=== PATIENT | female | born 1960 | race Caucasian/White ===

== ENCOUNTER 2021-11-08 12:24 | Outpatient (CLI) | payer OTHER, SELFPAY ==
--- NOTE | 2021-11-08 12:30 | ECG_ITS ---
Measurements Intervals [place] Rate: 70 P: 58 NH: 152 QRS: 25 QRSD: 98 T: 32 QT: 377 QTc: 408 Interpretive Statements SINUS RHYTHM BASELINE ARTIFACT NORMAL ECG NO PREVIOUS ECG AVAILABLE FOR COMPARISON Electronically Signed On 11-08-2021 15:37:55 CDT by Ford Allan M.D.
[2021-11-08 12:57] LABS: Anion Gap 7 mmol/L (8-16); Blood Urea Nitrogen 15 mg/dL (7-17); Calcium 9.2 mg/dL (8.4-10.2); Carbon Dioxide 34 mmol/L (22-30); Chloride 98 mmol/L (98-107); Estimated Glomerular Filt Rate > 60; Glucose 90 mg/dL (65-110); Potassium 4.1 mmol/L (3.4-5.0); Sodium 139 mmol/L (137-145)
== END 2021-11-08 12:25 | disposition home or self-care (01) ==
LOC: ANHSURGERY 12:30
PROVIDERS: Anesthesiology; PCP Internal Medicine; Visit Provider Podiatrist Foot & Ankle Surgery
DX: E78.00 Pure hypercholesterolemia, unspecified (principal); Z79.899 Other long term (current) drug therapy; Z01.818 Encounter for other preprocedural examination
CPT/HCPCS: 36415; 80048; 93005

== ENCOUNTER 2021-11-11 01:11 | Day surgery (SDC) | payer OTHER, SELFPAY ==
[2021-11-07 15:25] VITALS: BMI 25.6
--- NOTE | 2021-11-07 15:41 | PC.NURSE ---
Report to the Outpatient Waiting Room, entrance under the green pavilion located off [facility], at time 6:30 on date 11/11/21. OR Time: 8:30. - You and your visitor will be asked a series of questions to screen for COVID 19 for your protection. - Only one visitor is allowed at this time. - The patient visitor is requested to leave or wait in car when not with patient. - A mask is required within the hospital. Patients may have clear liquids (water, carbonated beverages, clear teas, apple juice) until 3 hours prior to surgery (5:30) with a maximum of 20 ounces. - No food from midnight until time of surgery Take the following medications with a SIP of water the morning of surgery: NONE Medications to discontinue per physician: VITAMINS/SUPPLEMENTS Date to take last dose: 11/07/21 Please no make-up, nail bengali, hairspray, perfume, deodorant, or body powder the day of surgery. No jewelry (including any body piercings) or valuables the day of surgery, leave them at home. Please take a shower or bath the night before, or the morning of, surgery with an antibacterial soap. Wear comfortable, loose fitting clothing. - Jewelry must be removed prior to entering the operating room. Rings and piercings that are not removed may be cut off. - The hospital will not accept responsibility for valuables. - Please leave all valuables, including medications, at home the day of surgery. If you are going home after surgery, a licensed bus driver supervisor must drive you home. - NO public transportation without another adult. - We recommend that an adult stay with you for 24 hours following discharge. - We also recommend that you do not drive, make important decision, drink alcoholic beverages, or take any drugs that were not prescribed by your health care provider for at least 24 hours after your discharge time. Follow any additional instructions given to you from your surgeon. If you or anyone in your household have experienced Covid symptoms in the past week, please notify your surgeon or the nurse liaison at the phone number below for possible testing. Telephone instructions given to PT - JOSE J CARDOZA and asked if any additional questions and then verbalized understanding. Patient advised to call surgeon office or pre surgery nurse liaison [phone] if any additional questions.
--- NOTE | 2021-11-10 14:38 | P.PNAN_ITS ---
Anes - Initial Pre Proc Eval Procedure: Operation Date: 11/11/21 08:30 Proposed Procedures p Enmanuel Dameon Bunionectomy Left Foot, - Ryan Car JR, MD s Excision of Osteophyte Left Foot - Ryan Car JR, MD Date/Time: 11/10/21 14:38 Surgeon: Ryan Car JR, MD Pre Op Diagnosis: bunion and osteophyte left foot Patient Data Age: 61 Gender: F Height: 1.57 m Weight: 63.6 kg Allergies Allergy/AdvReac Type Severity Reaction Status Date / Time No Known Allergies Allergy Unknown Unverified 11/11/21 07:03 Home Medications Medication Instructions Recorded Confirmed Type calcium carbonate 600 mg-vitamin 1 tablet PO DAILY 11/07/21 11/11/21 History D3 5 mcg (200 unit) tablet flaxseed oil 1,000 mg capsule 1,000 mg PO DAILY 11/07/21 11/11/21 History hydrochlorothiazide 25 mg tablet 12.5 mg PO DAILY SWELLING 11/07/21 11/11/21 History multivitamin 1 tablet PO DAILY 11/07/21 11/11/21 History simvastatin 40 mg tablet 40 mg PO DAILY 11/07/21 11/11/21 History Patient hx anesthesia problems: none Family hx anesthesia problems: none Results Review: All pre-operative results and documents have been reviewed as part of the pre- operative evaluation. [facility] Past Medical History Medical History (Updated 11/10/21 @ 14:39 by Alan Kennedy MD) HTN (hypertension) Hyperlipidemia Social History Social History Smoking status: Never smoker Alcohol intake: current Drinks per week: 3 Substance use: never Substance use type: does not use Living arrangements: with family Spiritual care concerns: No Anes - Eval Final PreProcedure Day of Procedure 11/10/21 14:38 Patient weight: overweight Heart: regular rate and rhythm Lungs: clear to auscultation and normal air movement Airway: Mallampati scale class II Neurological: alert and oriented Last oral intake: >/= 8 hours ASA classification: II Emergent: no Anesthetic plan: proceed Anesthesia type and monitoring: general LMA Results Review: All pre-operative results and documents have been reviewed as part of the pre- operative evaluation. Informed Consent: The patient's anesthetic plan and its attendant risks and benefits were discussed with the patient/family/POA. Questions were solicited and answers provided to the satisfaction of the patient/family/POA.
[2021-11-11] VITALS (8 sets, daily range): BP systolic 107–133; BP diastolic 58–70; PULSE 70–85; RESP 10–17; TEMP 36.2–36.7; O2SAT 96–100
--- NOTE | ~2021-11-11 | XR_ITS ---
XR surgery orthopedic DATE: 11/11/2021 10:04 INDICATION: Bunionectomy, osteophyte excision TECHNIQUE: 2 spot C-arm images of the forefoot 6 seconds fluoroscopy time 0.6253 cGy*cm2 total DAP COMPARISON: None FINDINGS: Status post bunionectomy, with 2 screws along the distal shaft of the first metatarsal bone and a U-shape] bridging an osteotomy at the metaphysis of the proximal phalanx of the first digit. IMPRESSION: Status post bunionectomy and osteophyte excision Reviewed, dictated and finalized at [facility]. Reviewed, dictated and finalized at [facility].
--- NOTE | 2021-11-11 07:05 | WPDHPUPDATE1 ---
History and Physical Update Update Date/Time: 11/11/21 07:05 History and Physical has been reviewed, including an updated exam of the patient. There are NO changes in the patient's condition. Risks, benefits, and alternatives have been discussed and questions answered. Patient agrees to proceed with procedure.
[2021-11-11] MEDS: LACTATED RINGERS 1,000 ML 30 ML IV CONT ×2 (07:13→10:30)
--- NOTE | 2021-11-11 08:55 | WPDANESPNB ---
Anes - Peripheral Nerve Block Date/Time: 11/11/21 08:55 I have discussed with the patient/family/POA the placement of a peripheral nerve block for post-operative pain management, including associated risks, benefits, complications, and side effects. Alternative methods of post-operative analgesia were detailed. Questions were solicited and answers provided to the satisfaction of the patient/family/POA. Time-Out: A pre-procedural Time-Out was completed immediately before starting the procedure and confirmed: Patient Identification, Site, Procedure, Patient Position and the Availability of Requisite Equipment. Clinical Indications: Acute post-operative pain management requested by the operative surgeon. Nerve Block Insertion Note Anes-nerve block: posterior fossa sciatic (20cc) left Patient position: supine Skin prep: chlorhexidine Needle: 22 gauge, stimulating, insulated echogenic needle. Needle length: 80 mm Technique: ultrasound (in plane) Injectate: bupivacaine 0.5% with epi 5 mcg/ml (20cc) Observations: tolerated well Complications: none Procedure start time:: 850 Procedure end time:: 855
[2021-11-11] MEDS: ceFAZolin 2 GM/D5W 50 ML 2 GM/50 ML BAG IVPB (08:59)
--- NOTE | 2021-11-11 10:46 | W.PM.PROC2 ---
Procedure Note - Detailed Date of Procedure 11/13/21 Pre-op Diagnosis 1. Bunion left foot 2. Painful osteophyte left foot Post-op Diagnosis Same Procedure Performed 1. Enmanuel Dameon Bunionectomy left foot 2. Excision of osteophyte leftfoot Surgeon Ryan Car JR, DPM Anesthesia General and Regional Indications Painful left foot
--- NOTE | 2021-11-11 10:48 | PM.OP ---
Procedure Note - Brief Procedure Note - Brief Date of procedure: 11/11/21 Pre-op diagnosis: bunion and osteophyte left foot Procedure performed: 1. Enmanuel Dameon Bunionectomy left foot 2. Excision of osteophyte left foot Surgeon: Ryan Car JR, NALLELY
--- NOTE | 2021-11-11 11:25 | W.PM.PROC2 ---
Procedure Note - Detailed Date of Procedure 11/11/21 Pre-op Diagnosis 1. Bunion deformity left foot 2. Painful osteophyte left foot Post-op Diagnosis Same Procedure Performed 1. Enmanuel Dameon Bunionectomy left foot 2. Excision of osteophyte leftfoot Surgeon Ryan Car JR, KIRKM Anesthesia General and Regional Description of Procedure Under mild sedation, the patient was brought in to the operating room, placed on the operating table in the supine position. A pneumatic ankle tourniquet was placed about the patient's left ankle. Following general anesthesia, and prevoiois popliteal fossa block, the foot was then scrubbed, prepped, and draped in the usual aseptic manner. An Esmarch bandage was then used to exsanguinate the patient's foot and the pneumatic ankle tourniquet was then inflated. An incion was made overlying the dorsal first metatarsal cuneiform joint extending to the periosteum. A capsular incision was made overlying a prominent osteophyte. Once exposed it was resected with an osteotome and mallet. The surrounding bone was made smooth with a stahl rasp. The area was flused with copious amounts of sterile saline. The capsule and subcutaneous structures were reapproximated with 4-0 Vicryl and the skin was reapproximated with 4-0 Monocryl in running suture fashion technique. An incision was made along the medial aspect of the first metatarsophalangeal joint along the contour of the bunion deformity. The incision was continued deep down through the subcutaneous tissues using sharp and blunt dissection. All bleeders were ligated and cauterized as necessary. At this point, dissection was continued to the first interspace via the original skin incision where the adductor hallucis tendon was initially identified and transected. Next the lateral capsule was incised as well as releasing the lateral fibular sesamoid both laterally, distally and proximally. This freed the lateral contracture present to the joint. Attention was then directed to the medial aspect of the first metatarsophalangeal joint of the foot where a periosteum and capsular incision was made the full length of the skin incision just proximal to the interphalangeal joint of the hallux to the central shaft of the first metatarsal. The periosteum and capsular structures were reflected superiorly and inferiorly exposing the base of the proximal phalanx as well as the distal first metatarsal. Next, the medial eminence was resected from the first metatarsal head utilizing a sagittal bone saw. Next, a V-type osteotomy was created in the distal metaphyseal region of the bone utilizing a sagittal bone saw. The apex of the osteotomy pointed distally with the arms pointing proximal plantarly and proximal dorsally. The dorsal arm was made longer to accommodate internal fixation. Upon completion of the osteotomy, the capital fragment was distracted and shifted laterally into more corrected position and impacted upon the first metatarsal shaft. Next two 3.0 mm partially threaded cannulated screws were driven from dorsal to plantar across the osteotomy site with excellent compression noted. The temporary fixation was then removed. Next, the remaining medial bone shaft was resected utilizing a sagittal bone saw. Attention was then directed to the proximal phalanx medially where a small 2 mm wedge resection of bone was taken from the proximal phalanx. After the wedge resection was performed, an 8 mm compression staple was placed from medial to lateral across the osteotomy site with excellent compression noted. After this osteotomy was performed, the hallux was noted to be in a rectus position as well as significant reduction of the first intermetatarsal angle was noted with live fluoroscopic imaging. The screws and staple were appropriately aligned and oriented utilizing fluoroscopy. The wound site was then flushed with copious amounts of sterile saline. Next, a rotary power b
== END 2021-11-11 12:06 | disposition home or self-care (01) ==
PROVIDERS: PCP Internal Medicine; Visit Provider Podiatrist Foot & Ankle Surgery
PROC: (CPT 28299; principal; 2021-11-11 08:30)
DX: M21.612 Bunion of left foot (principal); M25.775 Osteophyte, left foot; I10 Essential (primary) hypertension; E78.49 Other hyperlipidemia; G89.18 Other acute postprocedural pain
CPT/HCPCS: 28299; 64445; 28104; 36415; 80048; 93005; 99199; C1713; J0690; J1100; J2250; J2405; J2704; J3010; J7120

== ENCOUNTER 2022-02-20 00:59 | Day surgery (SDC) | payer OTHER, SELFPAY ==
[2022-02-09 14:40] VITALS: BMI 25.6
[2022-02-20 07:38] VITALS: BP 129/68; PULSE 83; RESP 18; TEMP 36.7; O2SAT 99; BMI 26.0
[2022-02-20] MEDS: LACTATED RINGERS 1,000 ML 150 ML IV CONT (07:56)
--- NOTE | 2022-02-20 08:13 | P.HP_ITS ---
History of Present Illness History of Present Illness Consent: Risks, benefits, and alternatives have been discussed and questions answered. Patient agrees to proceed with procedure. Chief complaint: neoplasm screening Narrative: Savannah Carter is a 61 year old female Presents for screening colonoscopy. Patient's current weight appetite and bowel movements are normal. She denies abdominal pain. She has had no bleeding. Family history is noncontributory. Patient presents today for screening exam. Review of Systems Review of Systems: Review of systems noncontributory. [facility] Past Medical History Medical History (Updated 02/20/22 @ 08:14 by Demetri Kerns MD) HTN (hypertension) Hyperlipidemia Social History Social History Smoking status: Never smoker Alcohol intake: current Drinks per week: 3 Alcohol use details: weekends Substance use: never Substance use type: does not use Living arrangements: with family Spiritual care concerns: No Meds Home Medications and Allergies Home Medications Medication Instructions Recorded Confirmed Type calcium carbonate 600 mg-vitamin 1 tablet PO DAILY 11/07/21 02/20/22 History D3 5 mcg (200 unit) tablet flaxseed oil 1,000 mg capsule 1,000 mg PO DAILY 11/07/21 02/20/22 History hydrochlorothiazide 25 mg tablet 12.5 mg PO DAILY SWELLING 11/07/21 02/20/22 History multivitamin 1 tablet PO DAILY 11/07/21 02/20/22 History simvastatin 40 mg tablet 40 mg PO DAILY 11/07/21 02/20/22 History Allergies Allergy/AdvReac Type Severity Reaction Status Date / Time No Known Allergies Allergy Unknown Verified 02/20/22 07:45 Vital Signs Vital Signs - 24 hr 02/20/22 07:38 Temperature 98.1 F Pulse Rate 83 Respiratory Rate 18 Blood Pressure 129/68 Pulse Oximetry 99 Oxygen Delivery Room Air Exam Narrative: Physical exam reveals patient to be alert. Vital signs stable. HEENT exam is unremarkable. Patient is anicteric. Lungs are clear to auscultation and percussion. Heart is without murmur or extra sounds. Abdomen bowel sounds present soft nontender with no organomegaly. Digital external rectal exam is normal. Assessment and Plan Assessment and plan (1) Encounter for screening colonoscopy: Code(s): Z12.11 - Encounter for screening for malignant neoplasm of colon Status: Acute Assessment and Plan: Patient presents today for screening colonoscopy. She appears to be at average risk for colon polyps. Further recommendations may be given after endoscopy.
--- NOTE | 2022-02-20 08:43 | WPDANESEPPF ---
Anes - Initial Pre Proc Eval Procedure: Operation Date: 02/20/22 09:00 Proposed Procedures p Screening Colonoscopy - Demetri Kerns MD Date/Time: 02/20/22 08:43 Surgeon: Demetri Kerns MD Pre Op Diagnosis: neoplasm screening Patient Data Age: 61 Gender: F Height: 1.57 m Weight: 64.6 kg Last Vital Signs Temp 98.1 F 02/20/22 07:38 Pulse 83 02/20/22 07:38 Resp 18 02/20/22 07:38 BP 129/68 02/20/22 07:38 Pulse Ox 99 02/20/22 07:38 O2 Del Method Room Air 02/20/22 07:38 Allergies Allergy/AdvReac Type Severity Reaction Status Date / Time No Known Allergies Allergy Unknown Verified 02/20/22 07:45 Home Medications Medication Instructions Recorded Confirmed Type calcium carbonate 600 mg-vitamin 1 tablet PO DAILY 11/07/21 02/20/22 History D3 5 mcg (200 unit) tablet flaxseed oil 1,000 mg capsule 1,000 mg PO DAILY 11/07/21 02/20/22 History hydrochlorothiazide 25 mg tablet 12.5 mg PO DAILY SWELLING 11/07/21 02/20/22 History multivitamin 1 tablet PO DAILY 11/07/21 02/20/22 History simvastatin 40 mg tablet 40 mg PO DAILY 11/07/21 02/20/22 History Patient hx anesthesia problems: none Family hx anesthesia problems: none Results Review: All pre-operative results and documents have been reviewed as part of the pre-operative evaluation. [facility] Past Medical History Medical History (Updated 02/20/22 @ 08:14 by Demetri Kerns MD) HTN (hypertension) Hyperlipidemia Social History Social History Smoking status: Never smoker Alcohol intake: current Drinks per week: 3 Alcohol use details: weekends Substance use: never Substance use type: does not use Living arrangements: with family Spiritual care concerns: No Anes - Eval Final PreProcedure Day of Procedure 02/20/22 08:43 Patient weight: normal Heart: regular rate and rhythm Lungs: clear to auscultation Airway: Mallampati scale class II Neurological: alert and oriented Last oral intake: >/= 8 hours ASA classification: II Emergent: no Anesthetic plan: proceed Anesthesia type and monitoring: general GIVS and standard monitoring Results Review: All pre-operative results and documents have been reviewed as part of the pre-operative evaluation. Informed Consent: The patient's anesthetic plan and its attendant risks and benefits were discussed with the patient/family/POA. Questions were solicited and answers provided to the satisfaction of the patient/family/POA.
[2022-02-20 09:13] VITALS: BP 77/48; PULSE 75; RESP 18; O2SAT 100
[2022-02-20 09:23] VITALS: BP 90/52; PULSE 72; RESP 18; O2SAT 99
[2022-02-20 09:32] VITALS: BP 97/57; PULSE 72; RESP 18; O2SAT 100
== END 2022-02-20 09:43 | disposition home or self-care (01) ==
PROVIDERS: PCP Internal Medicine; Visit Provider Internal Medicine Gastroenterology
PROC: 0DJD8ZZ Inspection of Lower Intestinal Tract, Via Natural or Artificial Opening Endoscopic (ICD-10-PCS; CPT 45378; principal; 2022-02-20 09:00)
DX: Z12.11 Encounter for screening for malignant neoplasm of colon (principal); K64.8 Other hemorrhoids; I10 Essential (primary) hypertension; E78.5 Hyperlipidemia, unspecified
CPT/HCPCS: 45378; J2704; J7120

== ENCOUNTER 2023-01-05 01:38 | Day surgery (SDC) | payer OTHER, SELFPAY ==
[2022-12-28 15:15] VITALS: BMI 26.6
--- NOTE | 2022-12-29 12:11 | PC.NURSE ---
Report to the Outpatient Waiting Room, entrance under the green pavilion located off [facility], at time _0700_ on date _01/05/23 . Planned Procedure Time: __0900__. Time changes happen often and if your time is changed the preop area will call you the afternoon before. - You and your visitor will be asked to self-screen and do not enter if you have any COVID symptoms. - A mask is optional within the hospital at this time. Patients may have clear liquids (water, carbonated beverages, clear teas, apple juice) until 3 hours prior to surgery with a maximum of 20 ounces. - No food from midnight until time of surgery Take the following medications with a SIP of water the morning of surgery: ___NONE DO NOT STOP ANY OF YOUR OTHER PRESCRIPTION MEDICATIONS PRIOR TO SURGERY ?EXCEPT THE FOLLOWING Medications to discontinue per physician D/C VITAMIN 12/25/22 Date to take last dose Please no make-up, nail yoruba, hairspray, perfume, deodorant, or body powder the day of surgery. No jewelry (including any body piercings) or valuables the day of surgery, leave them at home. Please take a shower or bath the night before, or the morning of, surgery with an antibacterial soap. Wear comfortable, loose fitting clothing. - Jewelry must be removed prior to entering the operating room. Rings and piercings that are not removed may be cut off. - The hospital will not accept responsibility for valuables. - Please leave all valuables, including medications, at home the day of surgery. If you are going home after surgery, a licensed line haul driver must drive you home. - NO public transportation without another adult if you receive anesthesia. - We recommend that an adult stay with you for 24 hours following discharge. - We also recommend that you do not drive, make important decision, drink alcoholic beverages, or take any drugs that were not prescribed by your health care provider for at least 24 hours after your discharge time. Follow any additional instructions given to you from your surgeon. If you or anyone in your household have experienced Covid symptoms in the past week, please notify your surgeon or the nurse liaison at the phone number below for possible testing. Telephone instructions given to __DEBBIE and asked if any additional questions and then verbalized understanding. Patient advised to call surgeon office or pre surgery nurse liaison [phone] if any additional questions.
[2023-01-05] VITALS (8 sets, daily range): BP systolic 101–128; BP diastolic 58–71; PULSE 84–93; RESP 14–18; TEMP 36.2; O2SAT 94–100
--- NOTE | ~2023-01-05 | XR_ITS ---
XR surgery orthopedic 01/05/2023 08:24 Indication: Right bunionectomy TECHNIQUE: Fluoroscopy used during Right bunionectomy performed by [Ryan Car JR MD] on 01/05/2023. Fluoroscopy time is 6 seconds. with 2 fluoroscopic images captured. FINDINGS: Correlate with procedure note. IMPRESSION: Fluoroscopy used during Right bunionectomy. Reviewed, dictated and finalized at location B.
[2023-01-05] MEDS: LACTATED RINGERS 1,000 ML 30 ML IV CONT ×2 (06:35→08:48)
--- NOTE | 2023-01-05 06:35 | WPDANESEPPF ---
Anes - Initial Pre Proc Eval Procedure: Operation Date: 01/05/23 07:30 Proposed Procedures p Enmanuel Dameon Bunionectomy Right Foot, - Ryan Car JR, MD s Excision Sanders's Neuroma Right Foot - Ryan Car JR, MD Date/Time: 01/05/23 06:35 Surgeon: Ryan Car JR, MD Pre Op Diagnosis: bunion rt foot, mortons neuroma rt foot Patient Data Age: 62 Gender: F Height: 1.57 m Weight: 66 kg Allergies Allergy/AdvReac Type Severity Reaction Status Date / Time No Known Allergies Allergy Unknown Verified 01/05/23 06:15 Home Medications Medication Instructions Recorded Confirmed Type calcium carbonate 600 mg-vitamin 1 tablet PO DAILY 11/07/21 01/05/23 History D3 5 mcg (200 unit) tablet flaxseed oil 1,000 mg capsule 1,000 mg PO DAILY 11/07/21 01/05/23 History hydrochlorothiazide 25 mg tablet 12.5 mg PO DAILY SWELLING 11/07/21 01/05/23 History multivitamin 1 tablet PO DAILY 11/07/21 01/05/23 History simvastatin 40 mg tablet 40 mg PO DAILY 11/07/21 01/05/23 History Patient hx anesthesia problems: none Family hx anesthesia problems: none Results Review: All pre-operative results and documents have been reviewed as part of the pre-operative evaluation. [facility] Past Medical History Medical History (Updated 02/20/22 @ 08:14 by Demetri Kerns MD) HTN (hypertension) Hyperlipidemia Surgical History Surgical History (Updated 01/05/23 @ 06:36 by González Olvera MD) H/O laparoscopy History of bunionectomy History of section Social History Social History Smoking status: Never smoker Alcohol intake: current Drinks per week: 3 Alcohol use details: weekends Substance use: never Substance use type: does not use Living arrangements: with family Spiritual care concerns: No Anes - Eval Final PreProcedure Day of Procedure 01/05/23 06:35 Patient weight: overweight Heart: regular rate and rhythm Lungs: clear to auscultation Airway: Mallampati scale class II Neurological: alert and oriented Last oral intake: >/= 8 hours ASA classification: II Emergent: no Anesthetic plan: proceed Anesthesia type and monitoring: general LMA and standard monitoring Results Review: All pre-operative results and documents have been reviewed as part of the pre-operative evaluation. Informed Consent: The patient's anesthetic plan and its attendant risks and benefits were discussed with the patient/family/POA. Questions were solicited and answers provided to the satisfaction of the patient/family/POA.
--- NOTE | 2023-01-05 07:15 | WPDHPUPDATE1 ---
History and Physical Update Update Date/Time: 01/05/23 07:15 History and Physical has been reviewed, including an updated exam of the patient. There are NO changes in the patient's condition. Risks, benefits, and alternatives have been discussed and questions answered. Patient agrees to proceed with procedure.
[2023-01-05] MEDS: ceFAZolin 2 GM/D5W 50 ML 2 GM/50 ML BAG IVPB (07:25)
--- NOTE | 2023-01-05 07:27 | WPDANESPNB ---
Anes - Peripheral Nerve Block Date/Time: 01/05/23 07:27 I have discussed with the patient/family/POA the placement of a peripheral nerve block for post-operative pain management, including associated risks, benefits, complications, and side effects. Alternative methods of post-operative analgesia were detailed. Questions were solicited and answers provided to the satisfaction of the patient/family/POA. Time-Out: A pre-procedural Time-Out was completed immediately before starting the procedure and confirmed: Patient Identification, Site, Procedure, Patient Position and the Availability of Requisite Equipment. Clinical Indications: Acute post-operative pain management requested by the operative surgeon. Nerve Block Insertion Note Anes-nerve block: posterior fossa sciatic right and other (saphenous - right) Patient position: supine Skin prep: chlorhexidine Needle: 22 gauge, stimulating, insulated echogenic needle. Needle length: 80 mm Technique: nerve stimulation lost at (mA) (0.3) Injectate: bupivacaine 0.5% with epi 5 mcg/ml (23cc sciatic no epi, 8cc saphenous) Observations: tolerated well Complications: none Procedure start time:: 714 Procedure end time:: 719
--- NOTE | 2023-01-05 08:28 | W.PM.PROC2 ---
Procedure Note - Detailed Date of Procedure 01/05/23 Pre-op Diagnosis 1. Bunion deformity right foot 2. Sanders neuroma right foot Post-op Diagnosis Same Procedure Performed 1. Enmanuel Dameon Bunionectomy right foot 2. Excision of Sanders Neuroma of the right foot Surgeon Ryan Car JR, DPM Anesthesia General and Regional Indications Painful right forefoot Description of Procedure Under mild sedation, the patient was brought in to the operating room, placed on the operating table in the supine position. A pneumatic ankle tourniquet was placed about the patient's right ankle. Following general anesthesia, and a popliteal fossa block, the foot was then scrubbed, prepped, and draped in the usual aseptic manner. An Esmarch bandage was then used to exsanguinate the patient's right foot and the pneumatic ankle tourniquet was then inflated. An incision was made along the medial aspect of the first metatarsophalangeal joint along the contour of the bunion deformity. The incision was continued deep down through the subcutaneous tissues using sharp and blunt dissection. All bleeders were ligated and cauterized as necessary. At this point, dissection was continued to the first interspace via the original skin incision where the adductor hallucis tendon was initially identified and transected. Next the lateral capsule was incised as well as releasing the lateral fibular sesamoid both laterally, distally and proximally. This freed the lateral contracture present to the joint. Attention was then directed to the medial aspect of the first metatarsophalangeal joint of the right foot where a periosteum and capsular incision was made the full length of the skin incision just proximal to the interphalangeal joint of the hallux to the central shaft of the first metatarsal. The periosteum and capsular structures were reflected superiorly and inferiorly exposing the base of the proximal phalanx as well as the distal first metatarsal. Next, the medial eminence was resected from the first metatarsal head utilizing a sagittal bone saw. Next, a V-type osteotomy was created in the distal metaphyseal region of the bone utilizing a sagittal bone saw. The apex of the osteotomy pointed distally with the arms pointing proximal plantarly and proximal dorsally. The dorsal arm was made longer to accommodate internal fixation. Upon completion of the osteotomy, the capital fragment was distracted and shifted laterally into more corrected position and impacted upon the first metatarsal shaft. Next two 3.0 mm partially threaded cannulated screws were driven from dorsal to plantar across the osteotomy site with excellent compression noted. The temporary fixation was then removed. Next, the remaining medial bone shaft was resected utilizing a sagittal bone saw and made smooth with a power marky. Attention was then directed to the proximal phalanx medially where a small 2 mm wedge resection of bone was taken from the proximal phalanx. After the wedge resection was performed, an 8 mm compression staple was placed from medial to lateral across the osteotomy site with excellent compression noted. After this osteotomy was performed, the hallux was noted to be in a rectus position as well as significant reduction of the first intermetatarsal angle was noted with live fluoroscopic imaging. The screws and staple were appropriately aligned and oriented utilizing fluoroscopy. The wound site was then flushed with copious amounts of sterile saline. Next, a rotary power bur was used to smooth out any rough surfaces from the base of the proximal phalanx as well as the head of the first metatarsal, both dorsally, medially and laterally. The wound site was once again flushed with copious amounts of sterile saline. Next, the redundant capsular medial tissue was resected from the first metatarsophalangeal joint. Next, the periosteum and capsular structures were reapproximated with 3-0
[2023-01-05] MEDS: oxyCODONE HCL (*CRX) 5 MG TAB IR PO (10:20)
== END 2023-01-05 10:44 | disposition home or self-care (01) ==
PROVIDERS: PCP Internal Medicine; Visit Provider Podiatrist Foot & Ankle Surgery
PROC: (CPT 28299; principal; 2023-01-05 07:30)
PROC: (CPT 28080; 2023-01-05 07:30)
DX: M21.611 Bunion of right foot (principal); G57.61 Lesion of plantar nerve, right lower limb; G89.18 Other acute postprocedural pain; I10 Essential (primary) hypertension; E78.5 Hyperlipidemia, unspecified
CPT/HCPCS: 28080; 28299; 64445; 64450; 88304; 99199; A9270; C1713; J0690; J1100; J1170; J2250; J2405; J2704; J3010; J7120